=== PATIENT | male | born 1980 | race Caucasian/White ===

== ENCOUNTER 2017-10-18 11:19 | Inpatient (IN) | payer OTHER ==
[~2017-10-18] VITALS: Ht 177.8 cm; Wt 67.0 kg
[~2017-10-18 11:19] MED LIST: ATARAX,VISTARIL50 MG PO; ATIVAN1 MG PO; CLONIDINE HCL0.1 MG PO; CYMBALTA20 MG PO; METHADONE5 MG PO; SEROQUEL50 MG PO; SYNTHROID25 MCG PO; TRAZODONE HCL100 MG PO
[2017-10-18 11:56] LABS: HEMOGLOBIN 14.7 G/DL (12.5-16.6); MCH 28.1 PG (29.0-34.0); MCHC 33.4 G/DL (30.0-36.0); MCV 84.1 FL (86-99); PLATELET COUNT 298 K/uL (156-360); RBC DIS.WIDTH-CV 13.7 % (11.8-14.6); RBC DIS.WIDTH-SD 42.6 % (39-53); RED BLOOD COUNT 5.23 M/uL (4.00-5.50); WHITE BLOOD COUNT 8.1 K/uL (4.1-10.2)
[2017-10-18 12:07] LABS: CHLORIDE 104 mEq/L (99-109); SODIUM 135 mEq/L (136-147)
[2017-10-18 12:09] LABS: GLUCOSE 118 mg/dL (70-99)
[2017-10-18 12:13] LABS: CREATININE 0.8 mg/dL (0.6-1.3); GFR ESTIMATE (CALCULATED) > 59 mL/min/ (58.99-99999)
[2017-10-18 12:14] LABS: UREA NITROGEN (BUN) 17 mg/dL (9-23)
[2017-10-18 12:38] LABS: INTER. NORMALIZED RATIO 0.9
[2017-10-18 12:41] LABS: PTT 29.8 SEC (25-37)
[2017-10-18] MEDS ORDERED: LEVOTHYROXINE25 MCG PO (15:48)
[2017-10-18 18:28] VITALS: BP 130/78
[2017-10-18 19:42] VITALS: BP 110/57
[2017-10-18 23:53] VITALS: BP 128/82
[2017-10-19] MEDS ORDERED: CYCLOBENZAPRINE10 MG PO (02:19)
[2017-10-19 03:48] VITALS: BP 134/82
[2017-10-19 08:43] VITALS: BP 116/65
[2017-10-19 12:06] VITALS: BP 130/62
[2017-10-19 17:18] VITALS: BP 124/64
[2017-10-19 23:01] VITALS: BP 134/89
[2017-10-20 07:00] VITALS: BP 118/76
[2017-10-20 11:14] VITALS: BP 122/82
[2017-10-20 16:30] VITALS: BP 155/87
[2017-10-20 19:59] VITALS: BP 135/85
[2017-10-20 23:07] VITALS: BP 125/71
[2017-10-21 04:37] VITALS: BP 119/74
[2017-10-21 07:03] LABS: HEMATOCRIT 37.4 % (38.0-50.0); MCH 27.4 PG (29.0-34.0); MCHC 32.6 G/DL (30.0-36.0); PLATELET COUNT 218 K/uL (156-360); RBC DIS.WIDTH-CV 13.8 % (11.8-14.6); RBC DIS.WIDTH-SD 42.5 % (39-53); RED BLOOD COUNT 4.45 M/uL (4.00-5.50)
[2017-10-21 07:05] LABS: HEMOGLOBIN 12.2 G/DL (12.5-16.6)
[2017-10-21 07:36] LABS: CHLORIDE 103 MEQ/L (99-109); CREATININE 0.8 MG/DL (0.6-1.3); GFR ESTIMATE (CALCULATED) > 59 mL/min/ (58.99-99999); GLUCOSE 103 mg/dL (70-99); POTASSIUM 3.5 MEQ/L (3.7-5.4); SODIUM 139 MEQ/L (136-147); UREA NITROGEN (BUN) 12 mg/dL (9-23)
[2017-10-21 07:48] VITALS: BP 121/77
[2017-10-21 12:01] VITALS: BP 136/75
[2017-10-21 17:02] VITALS: BP 116/79
[2017-10-21 19:32] VITALS: BP 137/95
[2017-10-21 23:19] VITALS: BP 138/86
[2017-10-22 04:17] VITALS: BP 114/65
[2017-10-22 04:46] LABS: HEMATOCRIT 38.8 % (38.0-50.0); HEMOGLOBIN 12.9 G/DL (12.5-16.6); MCH 28.1 PG (29.0-34.0); MCHC 33.2 G/DL (30.0-36.0); MCV 84.5 FL (86-99); PLATELET COUNT 230 K/uL (156-360); RBC DIS.WIDTH-CV 13.8 % (11.8-14.6); RBC DIS.WIDTH-SD 42.6 % (39-53); RED BLOOD COUNT 4.59 M/uL (4.00-5.50); WHITE BLOOD COUNT 6.9 K/uL (4.1-10.2)
[2017-10-22 06:11] LABS: CHLORIDE 100 MEQ/L (99-109); CREATININE 0.8 MG/DL (0.6-1.3); GFR ESTIMATE (CALCULATED) > 59 mL/min/ (58.99-99999); GLUCOSE 109 mg/dL (70-99); SODIUM 140 MEQ/L (136-147); UREA NITROGEN (BUN) 13 mg/dL (9-23)
[2017-10-22 08:03] VITALS: BP 130/75
[2017-10-22 12:00] VITALS: BP 125/72
[2017-10-22 16:12] VITALS: BP 133/80
[2017-10-22 23:56] VITALS: BP 117/76
[2017-10-23 08:01] VITALS: BP 131/91
[2017-10-23 16:15] VITALS: BP 132/83
[2017-10-23 23:25] VITALS: BP 135/75
[2017-10-24 05:00] VITALS: BP 110/68
[2017-10-24 08:26] VITALS: BP 118/80
[2017-10-24 11:59] VITALS: BP 127/78
[2017-10-24 16:05] VITALS: BP 129/80
[2017-10-24] MEDS ORDERED: MOTRIN600 MG PO (20:17)
[2017-10-24] MEDS ORDERED: HYDROCODON-ACE1 EAC7 PO (20:17)
[2017-10-24] MEDS ORDERED: DOCUSATE SODIU100 MG PO (20:17)
== END 2017-10-24 21:24 | disposition home or self-care (01) | DRG 200 ==
LOC: EME 11:19 → 3EAST 16:26 → EDOF 16:26 → ENRESERV 16:33 → 3EAST 17:51
PROVIDERS: Emergency Medicine; Surgery; Thoracic Surgery (Cardiothoracic Vascular Surgery)
PROC: 0W9B30Z Drainage of Left Pleural Cavity with Drainage Device, Percutaneous Approach (ICD-10-PCS; principal; 2017-10-18)
DX: J93.0 Spontaneous tension pneumothorax (principal); J98.11 Atelectasis; N30.10 Interstitial cystitis (chronic) without hematuria; F41.9 Anxiety disorder, unspecified; J93.82 Other air leak; F12.10 Cannabis abuse, uncomplicated; G89.29 Other chronic pain; F11.90 Opioid use, unspecified, uncomplicated; F17.200 Nicotine dependence, unspecified, uncomplicated; K59.00 Constipation, unspecified; E03.9 Hypothyroidism, unspecified; M54.9 Dorsalgia, unspecified; Z98.1 Arthrodesis status
CPT/HCPCS: 71045; 71046; 80048; 85027; 85610; 85730; 93005; 94640 76; 94760; 94799; 99202; 99281; 99285; J0131; J0690; J1100; J1170; J1644; J1885; J2060; J2250; J2270; J2405; J3010; J7030; J7120